=== PATIENT | female | born 1990 | race Caucasian/White ===

== ENCOUNTER 2021-12-06 20:11 | Emergency (ER) | payer SELFPAY ==
[2021-12-06 20:34] VITALS: BP 108/79
[2021-12-06 21:53] LABS: Hematocrit 40.6 % (30.3-42.9); Mean Corpuscular HGB Conc 32 % (30-34); Mean Corpuscular Volume 93 fl (79-97); Platelet Count 224 K/mm3 (140-440); Red Blood Count 4.38 M/mm3 (3.65-5.03); Red Cell Distribution Width 13.1 % (13.2-15.2)
[2021-12-06 22:18] LABS: Blood Urea Nitrogen 9 mg/dL (7-17); Calcium 8.3 mg/dL (8.4-10.2); Hemolysis Index 22
[2021-12-06 22:31] LABS: BUN/Creatinine Ratio 18
[2021-12-06 22:39] LABS: Basophils % (Manual) 0 % (0.0-1.8); RBC Morphology Normal; Total Cells Counted 100
[2021-12-06 22:40] LABS: Platelet Clumps Few; Platelet Estimate Appears Increased
== END 2021-12-07 01:20 | disposition left against medical advice (07) ==
LOC: ED 20:11
DX: R10.12 Left upper quadrant pain (principal); Z53.21 Procedure and treatment not carried out due to patient leaving prior to being seen by health care provider
CPT/HCPCS: 36415; 80048; 83690; 85007; 85025